=== PATIENT | male | born 2000 | race Hispanic/Latino ===

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

== ENCOUNTER 2024-12-31 19:16 | Emergency (ER) | payer BC ==
[~2024-12-31] VITALS: Ht 170.2 cm; Wt 72.6 kg
[2024-12-31 19:16] VITALS: PULSE 83; RESP 16; TEMP 98.8
[2024-12-31] MEDS ORDERED: TETANUS/DIPHTHERIA TOX ADULT 0.5 ML SYR ONE (19:47)
[2024-12-31] MEDS ORDERED: CEPHALEXIN500 MG PO (19:47)
[2024-12-31] MEDS: TETANUS/DIPHTHERIA TOX ADULT 0.5 ML SYR IM ONE (19:51)
[2024-12-31] MEDS: LIDOCAINE HCL 1% LOCAL INJ 20 ML VIAL INJ ONE (19:52)
[2024-12-31 19:55] VITALS: BP 127/74; PULSE 81; RESP 16; TEMP 98; O2SAT 100
[2025-01-03] MEDS ORDERED: VITAMIN D3250 MC1 PO (10:22)
== END 2024-12-31 20:05 | disposition home or self-care (01) ==
LOC: ER 19:42
DX: S66.221A Laceration of extensor muscle, fascia and tendon of right thumb at wrist and hand level, initial encounter (principal); W26.0XXA Contact with knife, initial encounter; Y92.89 Other specified places as the place of occurrence of the external cause
CPT/HCPCS: 26418; 99284; J2003; 90714

== ENCOUNTER → 2025-01-08 | Day surgery (SDC) | payer BC ==
[~2025-01-08] MED LIST: ACETAMINOPHEN-1 EAC4 PO; CEPHALEXIN500 MG PO; DEXAMETHASONE SOD PHOS INJ 4 MG/ML SDV ONE; FENTANYL CITRATE/PF 100MCG/2 ML INJ ONE; LIDOCAINE HCL 2% LOCAL INJ 5 ML SDV VIAL INJ ONE; MIDAZOLAM HCL 2 MG/2 ML VIAL ONE; ONDANSETRON HCL INJ 2MG/ML 2ML 2 MG/ML VIAL ONE; PROPOFOL IV EMULSION 10 MG/ML 20 ML VIAL ONE; VITAMIN D3250 MC1 PO
[2025-01-08] MEDS: LACTATED RINGER'S 1,000 ML ONE (06:53)
[2025-01-08 08:45] VITALS: TEMP 98.3
[2025-01-08] MEDS: HYDROCODONE/APAP 5MG-325MG TAB ONE (09:35)
[2025-01-08 10:10] VITALS: BP 130/72; PULSE 71; RESP 18; O2SAT 99
== END | disposition home or self-care (01) ==
LOC: OR 06:07
PROVIDERS: ATTEND Plastic Surgery
DX: S66.221A Laceration of extensor muscle, fascia and tendon of right thumb at wrist and hand level, initial encounter (principal); W26.0XXA Contact with knife, initial encounter
CPT/HCPCS: 26418 ×2; J0690; J1100; J2003; J2250; J2405; J2704; J3010; J7121

== ENCOUNTER 2025-02-18 15:00 | Outpatient (RCR) | payer BC ==
[~2025-02-18 15:00] MED LIST changes: -DEXAMETHASONE SOD PHOS INJ 4 MG/ML SDV ONE; -FENTANYL CITRATE/PF 100MCG/2 ML INJ ONE; -LIDOCAINE HCL 2% LOCAL INJ 5 ML SDV VIAL INJ ONE; -MIDAZOLAM HCL 2 MG/2 ML VIAL ONE; -ONDANSETRON HCL INJ 2MG/ML 2ML 2 MG/ML VIAL ONE; -PROPOFOL IV EMULSION 10 MG/ML 20 ML VIAL ONE
== END 2025-02-24 ==
LOC: OT 15:00
PROVIDERS: ATTEND Plastic Surgery
DX: S66.221A Laceration of extensor muscle, fascia and tendon of right thumb at wrist and hand level, initial encounter (principal); W26.0XXA Contact with knife, initial encounter

== ENCOUNTER 2025-03-13 15:00 | Outpatient (RCR) | payer BC | END 2025-03-26 | LOC: OT 15:00 | PROVIDERS: ATTEND Plastic Surgery | DX: S61.011A Laceration without foreign body of right thumb without damage to nail, initial encounter (principal) ==